=== PATIENT | female | born 1955 ===

== ENCOUNTER 2019-08-17 01:16 | Outpatient (CLI) | payer SELFPAY ==
[2019-08-17 09:12] LABS: HEMOGLOBIN A1C 5.7 % (4.5-6.2)
[2019-08-17 09:25] LABS: CHOL/HDL RATIO 3.67 (0.00-4.99)
== END 2019-08-17 23:59 | disposition home or self-care (01) ==
LOC: HW HEART 01:16
DX: Z13.6 Encounter for screening for cardiovascular disorders (principal)
CPT/HCPCS: 36415